=== PATIENT | female | born 2000 | race Two or more races ===

== ENCOUNTER 2019-11-11 06:00 | Emergency (ER) | payer SELFPAY ==
[~2019-11-11] VITALS: Ht 165.1 cm; Wt 81.6 kg
--- NOTE | 2019-11-11 06:30 | NUR ---
Dr. Patino at bedside for MSE.
[2019-11-11] MEDS ORDERED: METOCLOPRAMIDE HCL 10 MG/2 ML VIAL IM ONE (06:45)
[2019-11-11] MEDS ORDERED: diphenhydrAMINE 50 MG/1 ML VIAL IM ONE (06:45)
[2019-11-11] MEDS ORDERED: METOCLOPRAMIDE HCL 10 MG/2 ML VIAL ONE (06:52)
[2019-11-11] MEDS ORDERED: diphenhydrAMINE 50 MG/1 ML VIAL ONE (06:52)
--- NOTE | 2019-11-11 08:00 | NUR ---
Patient discharged to home in stable condition. Written and verbal after care instructions given. Patient verbalizes understanding of instructions. Stressed follow up or return to ER for worsening s/s. pt walks in steady gait.
[2019-11-11 08:23] VITALS: BP 129/71
== END 2019-11-11 08:00 | disposition home or self-care (01) ==
LOC: ER 06:05
DX: G43.909 Migraine, unspecified, not intractable, without status migrainosus (principal); J45.909 Unspecified asthma, uncomplicated
CPT/HCPCS: 96372; 99283; J1200; J2765; A4663

== ENCOUNTER 2019-11-22 11:40 | Emergency (ER) | payer SELFPAY ==
[~2019-11-22] VITALS: Ht 167.6 cm; Wt 81.6 kg
--- NOTE | 2019-11-22 13:02 | NUR ---
PT IS IN ROOM #2B. DR ROWE EVALUATED THE PT.
[2019-11-22] MEDS ORDERED: METOCLOPRAMIDE HCL 10 MG/2 ML VIAL IV ONE (13:15)
[2019-11-22] MEDS ORDERED: diphenhydrAMINE 50 MG/1 ML VIAL IV ONE (13:15)
[2019-11-22] MEDS ORDERED: IV NORMAL SALINE 1000 ML BAG IV ONE (13:15)
[2019-11-22] MEDS ORDERED: ACETAMINOPHEN ES 500 MG TABLET PO ONE (13:15)
[2019-11-22] MEDS ORDERED: diphenhydrAMINE 50 MG/1 ML VIAL ONE (13:30)
[2019-11-22] MEDS ORDERED: METOCLOPRAMIDE HCL 10 MG/2 ML VIAL ONE (13:30)
[2019-11-22] MEDS ORDERED: ACETAMINOPHEN ES 500 MG TABLET ONE (13:31)
[2019-11-22 13:54] LABS: BASOPHILS % (AUTO) 0.3 % (0.0-2.0); EOSINOPHILS % (AUTO) 0.3 % (0.0-7.0); HEMATOCRIT 39.9 % (31.2-41.9); HEMOGLOBIN 13.4 g/dL (10.9-14.3); LYMPHOCYTES # (AUTO) 2.3 K/uL (20.0-40.0); LYMPHOCYTES % (AUTO) 19.7 % (20.5-74.5); MEAN CORPUSCULAR HEMOGLOBIN 30.1 uug (24.7-32.8); MEAN CORPUSCULAR HGB CONC 34 g/dL (32.3-35.6); MEAN CORPUSCULAR VOLUME 89.6 fL (75.5-95.3); MONOCYTES # (AUTO) 0.7 K/uL (2.0-10.0); MONOCYTES % (AUTO) 5.9 % (0-11); NEUTROPHILS # (AUTO) 8.6 K/uL (1.8-8.9); NEUTROPHILS % (AUTO) 73.8 % (31.5-64.5); PLATELET COUNT (AUTO) 260 K/uL (179-408); RED BLOOD CELL COUNT(AUTO) 4.46 MIL/uL (3.63-4.92); WHITE BLOOD COUNT (AUTO) 11.7 K/uL (3.8-11.8)
[2019-11-22 14:12] LABS: CREATININE 0.8 mg/dL (0.6-1.3); POTASSIUM 3.9 mmol/L (3.5-5.1)
[2019-11-22 14:18] LABS: BILIRUBIN,DIRECT 0.1 mg/dL (0.0-0.2); BILIRUBIN,TOTAL 0.3 mg/dL (0.2-1.0); TOTAL PROTEIN, SERUM 8.3 g/dL (6.4-8.2)
[2019-11-22 14:54] LABS: LIPASE 97 U/L (73-393)
[2019-11-22 15:31] LABS: *BILIRUBIN,URIN NEGATIVE (NEGATIVE); *CLARITY,URINE CLEAR (CLEAR); *COLOR,URINE YELLOW (YELLOW); *KETONES,URINE NEGATIVE (NEGATIVE); *UROBILINOGEN,URINE 0.2 E.U./dl (NORMAL); LEUKOCYTE ESTERASE ,URINE TRACE (NEGATIVE); NITRITE, URINE NEGATIVE (NEGATIVE); PH,URINE 7.5 (5.0-8.0); UGLUCOSE NEGATIVE (NEGATIVE)
[2019-11-22 15:37] LABS: *BLOOD, URINE TRACE (NEGATIVE)
--- NOTE | 2019-11-22 16:56 | NUR ---
PT WAS D/C'd TO HOME. D/C INSTRUCTIONS GIVEN TO THE PT.
[2019-11-22 16:58] VITALS: BP 128/71
[2019-11-22 20:40] LABS: BACTERIA,URINE 1 /HPF (NONE SEEN); SQUAMOUS EPITHELIAL CELL,UR FEW /HPF (NONE SEEN)
[2019-11-23 08:08] LABS: *URINE HCG, QUAL NEGATIVE (NEGATIVE)
== END 2019-11-22 16:58 | disposition home or self-care (01) ==
LOC: ER 11:40
DX: R51 Headache (principal); R10.30 Lower abdominal pain, unspecified; J45.909 Unspecified asthma, uncomplicated
CPT/HCPCS: 36415; 70450; 80048; 80076; 81001; 83690; 84702; 84703; 85025; 96361; 96374; 96375; 99284; J1200; J2765; A4663; A9150; J7030

== ENCOUNTER 2019-11-28 23:27 | Emergency (ER) | payer SELFPAY ==
[~2019-11-28] VITALS: Ht 167.6 cm; Wt 81.6 kg
[2019-11-29 00:14] LABS: *BILIRUBIN,URIN NEGATIVE (NEGATIVE); *BLOOD, URINE NEGATIVE (NEGATIVE); *CLARITY,URINE SLIGHTLY CLOUDY (CLEAR); *COLOR,URINE YELLOW (YELLOW); *KETONES,URINE NEGATIVE (NEGATIVE); *UROBILINOGEN,URINE 0.2 E.U./dl (NORMAL); LEUKOCYTE ESTERASE ,URINE 1+ (NEGATIVE); NITRITE, URINE NEGATIVE (NEGATIVE); PH,URINE 8.5 (5.0-8.0); UGLUCOSE NEGATIVE (NEGATIVE)
[2019-11-29 00:15] LABS: *URINE HCG, QUAL NEGATIVE (NEGATIVE)
[2019-11-29] MEDS ORDERED: METOCLOPRAMIDE HCL 10 MG/2 ML VIAL IM ONE (00:30)
[2019-11-29] MEDS ORDERED: KETOROLAC TROMETHAMINE 60 MG INJ IM ONE ×2 (00:30→00:35)
[2019-11-29] MEDS ORDERED: METOCLOPRAMIDE HCL 10 MG/2 ML VIAL ONE (00:31)
[2019-11-29 00:34] LABS: RBC,URINE 0-3 /HPF (0-3)
[2019-11-29 00:35] LABS: BACTERIA,URINE NONE SEEN /HPF (NONE SEEN); SQUAMOUS EPITHELIAL CELL,UR FEW /HPF (NONE SEEN)
--- NOTE | 2019-11-29 01:03 | NUR ---
Patient discharged to home in stable condition. Written and verbal after care instructions given. Patient verbalizes understanding of instructions. Stressed follow up or return to ER for worsening s/s. AA/OX4. ABLE TO SPEAK IN COMPLETE SENTENCES NO S/S OF DISTRESS AMBULATORY WITH STEADY GAIT PT'S SISTER WILL DRIVE PT HOME
[2019-11-29 01:12] VITALS: BP 128/93
[2019-12-01 09:28] LABS: *GC NAA Negative (Negative); *TRIC.VAG. NAA Negative (Negative)
== END 2019-11-29 01:03 | disposition home or self-care (01) ==
LOC: ER 23:32
DX: N39.0 Urinary tract infection, site not specified (principal); R51 Headache; Z87.440 Personal history of urinary (tract) infections
CPT/HCPCS: 81001; 84703; 87086; 87491; 96372; 99283; J1885; J2765